=== PATIENT | female | born 1960 | race Caucasian/White ===

== ENCOUNTER 2019-10-05 11:53 | Inpatient (IN) | payer MEDICARE, MEDICAID ==
[~2019-10-05] VITALS: Ht 160 cm; Wt 72.6 kg
[2019-10-05] MEDS ORDERED: ZOLPIDEM TARTRATE 10 MG TABLET PO PRN (12:45)
[2019-10-05] MEDS: LORazepam 2 MG TABLET PO PRN (15:38)
[2019-10-05 16:10] VITALS: BP 133/86
[2019-10-05] MEDS: GABAPENTIN 300 MG CAPSULE PO SCH (16:37)
[2019-10-05] MEDS ORDERED: ACETAMINOPHEN 325 MG TABLET PO PRN (18:30)
[2019-10-05] MEDS: OLANZapine 5 MG TABLET PO SCH (20:32)
[2019-10-05] MEDS: CYCLOBENZAPRINE HCL 10 MG TABLET PO SCH (20:32)
[2019-10-06 06:58] VITALS: BP 124/74
[2019-10-06 08:15] VITALS: BP 118/81
[2019-10-06] MEDS: GABAPENTIN 300 MG CAPSULE PO SCH ×3 (08:41→16:19)
[2019-10-06] MEDS: OLANZapine 5 MG TABLET PO SCH ×2 (08:41→21:02)
[2019-10-06] MEDS: LORazepam 2 MG TABLET PO PRN ×2 (10:27→16:40)
[2019-10-06] MEDS ORDERED: CloNIDine HCL 0.1 MG TABLET PO PRN (15:00)
[2019-10-06] MEDS ORDERED: MAG HYDROX/AL HYDROX/SIMETH ES 30 ML SUSPENSION UDCUP PO PRN (15:00)
[2019-10-06] MEDS ORDERED: ACETAMINOPHEN 325 MG TABLET PO PRN (15:00)
[2019-10-06] MEDS ORDERED: LOPERAMIDE HCL 2 MG CAPSULE PO PRN (15:00)
[2019-10-06] MEDS ORDERED: GuaiFENesin/D-METHORPHAN [SUGAR-FREE] 200-20MG/10 ML SYRUP UDCUP PO PRN (15:00)
[2019-10-06] MEDS ORDERED: PETROLATUM,WHITE 28 GM JELLY TP PRN (15:00)
[2019-10-06] MEDS ORDERED: ALBUTEROL SULFATE HFA 90 MCG/PUFF 8 GM INHALER IH PRN (15:00)
[2019-10-06] MEDS ORDERED: DOCUSATE SODIUM 100 MG CAPSULE PO PRN (15:00)
[2019-10-06] MEDS ORDERED: ONDANSETRON HCL 4 MG TABLET PO PRN (15:00)
[2019-10-06 16:27] VITALS: BP 126/74
[2019-10-06] MEDS: CYCLOBENZAPRINE HCL 10 MG TABLET PO SCH (21:02)
[2019-10-07 05:33] VITALS: BP 122/74
[2019-10-07 07:48] LABS: BASOPHILS % (AUTO) 1.2 % (0.0-2.0); EOSINOPHILS % (AUTO) 3.6 % (1.0-6.0); HEMATOCRIT 42.9 % (36-46); HEMOGLOBIN 14.6 g/dL (12.0-16.0); LYMPHOCYTES # (AUTO) 2.4 K/uL (1.0-4.8); LYMPHOCYTES % (AUTO) 46.2 % (22.0-44.0); MEAN CORPUSCULAR HEMOGLOBIN 30.2 pg (26.0-34.0); MEAN CORPUSCULAR VOLUME 89 fL (80-100); MONOCYTES # (AUTO) 0.4 K/uL (0.1-1.0); MONOCYTES % (AUTO) 7.7 % (2.0-9.0); NEUTROPHILS # (AUTO) 2.1 K/uL (1.8-7.7); NEUTROPHILS % (AUTO) 41.3 % (40.0-70.0); PLATELET COUNT (AUTO) 243 K/uL (150-450); RED BLOOD CELL COUNT(AUTO) 4.82 MIL/uL (4.00-5.20); RED CELL DISTRIBUTION WIDTH 13.3 % (11.5-14.5)
[2019-10-07 08:11] LABS: HEMOGLOBIN A1C 5.4 % (3.8-5.6)
[2019-10-07 08:19] LABS: ALANINE AMINOTRANSFERASE 25 U/L (12-78); ALKALINE PHOSPHATASE 68 U/L (46-116); ANION GAP 6 mmol/L (8-16); ASPARTATE AMINOTRANSFERASE 18 U/L (15-37); BILIRUBIN,TOTAL 0.4 mg/dL (0.1-1.0); CALCIUM, TOTAL 9.3 mg/dL (8.8-10.5); CARBON DIOXIDE 30 mmol/L (22-29); CHLORIDE 106 mmol/L (98-107); CHOL/HDL RATIO 3.7 (3.9-5.7); CHOLESTEROL 192 mg/dL (131-200); CREATININE 0.84 mg/dL (0.60-1.30); FREE T4 (FREE THYROXINE) 1.03 ng/dL (0.76-1.46); GLOMERULAR FILTR. RATE CALC > 60 mL/min (>60); GLUCOSE,RANDOM 76 mg/dL (70-110); HDL CHOLESTEROL 52 mg/dL (40-60); LDL CHOL (CALC.) 114 mg/dL (0-130); POTASSIUM 4.1 mmol/L (3.5-5.1); SODIUM SERUM 142 mmol/L (136-145); TOTAL PROTEIN, SERUM 6.9 g/dL (6.4-8.2); TRIGLYCERIDES 129 mg/dL (15-150); UREA NITROGEN, BLOOD 19 mg/dL (7-18)
[2019-10-07] MEDS: GABAPENTIN 300 MG CAPSULE PO SCH ×3 (08:21→16:28)
[2019-10-07] MEDS: OLANZapine 5 MG TABLET PO SCH ×2 (08:21→20:46)
[2019-10-07 08:49] VITALS: BP 118/88
[2019-10-07] MEDS: LORazepam 2 MG TABLET PO PRN ×2 (09:22→20:47)
[2019-10-07 16:12] VITALS: BP 108/78
[2019-10-07] MEDS: CYCLOBENZAPRINE HCL 10 MG TABLET PO SCH (20:41)
[2019-10-08 06:19] VITALS: BP 103/64
[2019-10-08 08:27] VITALS: BP 105/78
[2019-10-08] MEDS: GABAPENTIN 400 MG CAPSULE PO SCH ×3 (08:27→16:16)
[2019-10-08 08:28] VITALS: BP 120/77
[2019-10-08] MEDS: LORazepam 2 MG TABLET PO PRN ×2 (09:00→16:20)
[2019-10-08 16:21] VITALS: BP 143/89
[2019-10-08] MEDS: NICOTINE 14 MG/24 HOUR PATCH TD PRN (17:54)
[2019-10-08] MEDS: CYCLOBENZAPRINE HCL 10 MG TABLET PO SCH (20:18)
[2019-10-08] MEDS: OLANZapine 5 MG TABLET PO SCH (20:18)
[2019-10-08] MEDS: DIVALPROEX SODIUM 500 MG ER TABLET PO SCH (20:22)
[2019-10-09 05:32] VITALS: BP 100/60
[2019-10-09] MEDS: LORazepam 2 MG TABLET PO PRN ×2 (06:45→13:32)
[2019-10-09 08:04] VITALS: BP 115/68
[2019-10-09] MEDS: GABAPENTIN 400 MG CAPSULE PO SCH ×3 (08:29→16:30)
[2019-10-09 17:25] VITALS: BP 108/69
[2019-10-09] MEDS: NICOTINE 14 MG/24 HOUR PATCH TD PRN (17:36)
[2019-10-09] MEDS: OLANZapine 7.5 MG TABLET PO SCH (20:31)
[2019-10-09] MEDS: CYCLOBENZAPRINE HCL 10 MG TABLET PO SCH (20:31)
[2019-10-09] MEDS: DIVALPROEX SODIUM 500 MG ER TABLET PO SCH (20:32)
[2019-10-10 05:23] VITALS: BP 111/78
[2019-10-10] MEDS: GABAPENTIN 400 MG CAPSULE PO SCH ×3 (08:01→16:18)
[2019-10-10 08:26] VITALS: BP 115/68
[2019-10-10] MEDS: LORazepam 2 MG TABLET PO PRN ×2 (09:02→18:59)
[2019-10-10 16:12] VITALS: BP 125/85
[2019-10-10] MEDS: NICOTINE 14 MG/24 HOUR PATCH TD PRN (16:22)
[2019-10-10] MEDS: HALOPERIDOL 5 MG TABLET PO PRN (18:59)
[2019-10-10] MEDS: OLANZapine 7.5 MG TABLET PO SCH (20:32)
[2019-10-10] MEDS: CYCLOBENZAPRINE HCL 10 MG TABLET PO SCH (20:32)
[2019-10-10] MEDS: DIVALPROEX SODIUM 500 MG ER TABLET PO SCH (20:33)
[2019-10-11 06:11] VITALS: BP 98/64
[2019-10-11 08:06] VITALS: BP 119/73
[2019-10-11] MEDS: GABAPENTIN 400 MG CAPSULE PO SCH ×3 (08:36→16:34)
[2019-10-11] MEDS: LORazepam 2 MG TABLET PO PRN ×2 (08:47→15:51)
[2019-10-11] MEDS: NICOTINE 14 MG/24 HOUR PATCH TD PRN (10:35)
[2019-10-11 16:06] VITALS: BP 113/67
[2019-10-11] MEDS: CYCLOBENZAPRINE HCL 10 MG TABLET PO SCH (20:32)
[2019-10-11] MEDS: OLANZapine 7.5 MG TABLET PO SCH (20:32)
[2019-10-11] MEDS: DIVALPROEX SODIUM 500 MG ER TABLET PO SCH (20:32)
[2019-10-12 06:22] VITALS: BP 98/60
[2019-10-12] MEDS: IBUPROFEN 400 MG TABLET PO PRN (06:36)
[2019-10-12 08:14] VITALS: BP 143/91
[2019-10-12] MEDS: GABAPENTIN 400 MG CAPSULE PO SCH ×3 (08:24→17:09)
[2019-10-12] MEDS: LORazepam 2 MG TABLET PO PRN ×2 (08:55→17:14)
[2019-10-12] MEDS: NICOTINE 14 MG/24 HOUR PATCH TD PRN (08:55)
[2019-10-12] MEDS: HALOPERIDOL 5 MG TABLET PO PRN (14:00)
[2019-10-12 16:08] VITALS: BP 119/75
[2019-10-12] MEDS: OLANZapine 7.5 MG TABLET PO SCH (20:12)
[2019-10-12] MEDS: DIVALPROEX SODIUM 500 MG ER TABLET PO SCH (20:12)
[2019-10-12] MEDS: CYCLOBENZAPRINE HCL 10 MG TABLET PO SCH (20:25)
[2019-10-13 05:29] VITALS: BP 127/77
[2019-10-13] MEDS: GABAPENTIN 400 MG CAPSULE PO SCH ×3 (08:14→16:32)
[2019-10-13 08:16] VITALS: BP 135/74
[2019-10-13] MEDS: LORazepam 2 MG TABLET PO PRN ×2 (08:18→13:32)
[2019-10-13 16:17] VITALS: BP 110/68
[2019-10-13] MEDS: DIVALPROEX SODIUM 500 MG ER TABLET PO SCH (20:38)
[2019-10-13] MEDS: CYCLOBENZAPRINE HCL 10 MG TABLET PO SCH (20:38)
[2019-10-13] MEDS: OLANZapine 10 MG TABLET PO SCH (20:39)
[2019-10-14 00:51] VITALS: BP 121/78
[2019-10-14 06:46] VITALS: BP 125/70
[2019-10-14] MEDS: IBUPROFEN 400 MG TABLET PO PRN (06:46)
[2019-10-14 08:01] VITALS: BP 129/80
[2019-10-14] MEDS: GABAPENTIN 400 MG CAPSULE PO SCH ×3 (08:43→16:31)
[2019-10-14] MEDS: NICOTINE 14 MG/24 HOUR PATCH TD PRN (09:47)
[2019-10-14] MEDS: LORazepam 2 MG TABLET PO PRN ×2 (12:35→17:08)
[2019-10-14 16:34] VITALS: BP 129/85
[2019-10-14] MEDS: MAGNESIUM HYDROXIDE SUSPENSION 30 ML UDCUP PO PRN (17:08)
[2019-10-14] MEDS: CYCLOBENZAPRINE HCL 10 MG TABLET PO SCH (20:34)
[2019-10-14] MEDS: OLANZapine 10 MG TABLET PO SCH (20:34)
[2019-10-14] MEDS: DIVALPROEX SODIUM 500 MG ER TABLET PO SCH (20:34)
[2019-10-15 06:12] VITALS: BP 127/73
[2019-10-15] MEDS: IBUPROFEN 400 MG TABLET PO PRN (06:51)
[2019-10-15 08:15] VITALS: BP 131/71
[2019-10-15] MEDS: GABAPENTIN 400 MG CAPSULE PO SCH ×3 (08:22→16:30)
[2019-10-15] MEDS: LORazepam 2 MG TABLET PO PRN (10:24)
[2019-10-15] MEDS: NICOTINE 14 MG/24 HOUR PATCH TD PRN (10:24)
[2019-10-15] MEDS ORDERED: DIVA500T52 PO (12:40)
[2019-10-15] MEDS ORDERED: GABA-533 PO (12:40)
[2019-10-15] MEDS ORDERED: OLAN10TA20 PO (12:40)
[2019-10-15] MEDS: MAGNESIUM HYDROXIDE SUSPENSION 30 ML UDCUP PO PRN (14:26)
[2019-10-15 16:10] VITALS: BP 120/81
[2019-10-15] MEDS: CYCLOBENZAPRINE HCL 10 MG TABLET PO SCH (20:32)
[2019-10-15] MEDS: DIVALPROEX SODIUM 500 MG ER TABLET PO SCH (20:32)
[2019-10-15] MEDS: OLANZapine 10 MG TABLET PO SCH (20:32)
[2019-10-16 00:26] VITALS: BP 113/70
[2019-10-16 08:22] VITALS: BP 130/87
[2019-10-16] MEDS ORDERED: CYCL10 PO (08:46)
[2019-10-16] MEDS: GABAPENTIN 400 MG CAPSULE PO SCH ×3 (08:52→16:04)
[2019-10-16] MEDS: NICOTINE 14 MG/24 HOUR PATCH TD PRN (09:20)
[2019-10-16 16:09] VITALS: BP 130/86
== END 2019-10-16 16:15 | disposition home or self-care (01) | DRG 885 ==
LOC: B2X 12:17
PROVIDERS: ADMIT Psychiatry & Neurology Psychiatry; ATTEND Psychiatry & Neurology Psychiatry
DX: F25.9 Schizoaffective disorder, unspecified (principal); I10 Essential (primary) hypertension; F10.10 Alcohol abuse, uncomplicated; F17.210 Nicotine dependence, cigarettes, uncomplicated; F19.10 Other psychoactive substance abuse, uncomplicated; Y90.9 Presence of alcohol in blood, level not specified; Z71.41 Alcohol abuse counseling and surveillance of alcoholic; Z71.51 Drug abuse counseling and surveillance of drug abuser; Z59.0 Homelessness; Z91.14 Patient's other noncompliance with medication regimen
CPT/HCPCS: 83036; 84439; 84443